=== PATIENT | female | born 2000 | race Two or more races ===

== ENCOUNTER 2022-10-10 07:34 | Emergency (ER) | payer MEDICAID, OTHER ==
[~2022-10-10] VITALS: Ht 165.1 cm; Wt 73.7 kg
[2022-10-10 07:46] VITALS: BP 119/94
[2022-10-10] MEDS ORDERED: ACETAMINOPHEN 325 MG TAB PO ONE (08:00)
[2022-10-10] MEDS ORDERED: cefTRIAXone SOD 1,000 MG VL IM ONE (09:30)
[2022-10-10] MEDS ORDERED: IBUP600T27 PO (09:30)
[2022-10-10] MEDS ORDERED: AZIT500T66 PO (09:30)
== END 2022-10-10 09:34 | disposition home or self-care (01) ==
LOC: ER 07:34
DX: J03.90 Acute tonsillitis, unspecified (principal); J20.9 Acute bronchitis, unspecified
CPT/HCPCS: 71046; 96372; 99283; J0696